=== PATIENT | male | born 1980 | race Two or more races ===

== ENCOUNTER 2016-09-19 03:54 | Emergency (ER) | payer MEDICARE, MEDICAID ==
[~2016-09-19] VITALS: Ht 172.7 cm; Wt 65.8 kg
[~2016-09-19 03:54] MED LIST: ADDERALL 20 MG20 MG ORAL; ATIVAN1 MG ORAL; CHANTIX0.5 MG PO; CLINDAMYCIN HC150 MG ORAL; CYMBALTA30 MG ORAL; FIORICET-COD 31 EACH PO; IBUPROFEN600 MG ORAL; KEPPRA500 M4 ORAL; MULTI VITAMIN1 EACH PO; NKM; NORCO 5-325 TA1 EACH ORAL; ROBAXIN-750750 MG PO; TRAMADOL HCL50 MG ORAL; [UNRECOGNIZED DRUG - OTHER]; ativan; fioricet; plaquenil
[2016-09-19 04:23] VITALS: BP 110/67
--- NOTE | 2016-09-19 04:34 | Emergency Room Report ---
History of Present Illness General Chief Complaint: Behavioral Complaint Source: Patient Present Illness HPI This is a 35-year-old male with a history of seizure and also psychiatric history. He alleged that he left [facility] 3 days ago. He walked all the way here from there. On the way, he stopped by [facility]. Did this because his lupus act up. He was prescribe medication including Dilaudid. He has not filled it. He walked all the way from there to here. He claimed that he walked in the rain for the last 3 days. He said he felt depressed because his roommate is driving him crazy. No specific suicidal plans. Denies delusions. Allergies: Coded Allergies: NAPROXEN (Verified Allergy, Intermediate, fever, 02/21/13) MELOXICAM (Verified Allergy, Unknown, rash, 08/30/16) SULFA (SULFONAMIDE ANTIBIOTICS) (Verified Allergy, Unknown, 09/19/16) Patient History Past Medical History: see triage record, old chart reviewed, seizures, psych hx Past Surgical History: other Pertinent Family History: none Social History: Reports: smoking, Denies: drug use Immunizations: other Reviewed Nursing Documentation: PMH: Agreed, PSxH: Agreed Nursing Documentation-PMH Hx Cancer: No Hx Gastrointestinal Problems: No History Of Psychiatric Problem: Yes - Depression Hx Seizures: Yes Review of Systems Eye: Denies: blurred vision, eye pain ENT: Denies: ear pain, nose congestion, throat swelling Respiratory: Denies: cough, shortness of breath Cardiovascular: Denies: chest pain, palpitations Gastrointestinal: Denies: abdominal pain, diarrhea, nausea, vomiting Musculoskeletal: Denies: back pain, joint pain Skin: Denies: rash Neurological: Denies: headache, numbness Endocrine: Denies: increased thirst, increased urine Hematologic/Lymphatic: Denies: easy bruising All Other Systems: negative except mentioned in HPI Physical Exam Vital Signs Date Time Temp Pulse Resp B/P Pulse Ox O2 Delivery O2 Flow Rate FiO2 09/19/16 04:06 97.9 93 16 107/60 97 Room Air vitals normal Sp02 EP Interpretation: reviewed, normal General Appearance: well appearing, no apparent distress, alert Head: normocephalic, atraumatic Eyes: bilateral eye EOMI, bilateral eye PERRL ENT: hearing grossly normal, normal pharynx Neck: full range of motion, supple, no meningismus Respiratory: chest non-tender, lungs clear, normal breath sounds Cardiovascular #1: regular rate, rhythm, no murmur Gastrointestinal: normal bowel sounds, non tender, no mass, no organomegaly, no bruit, non-distended Musculoskeletal: back normal, gait/station normal, normal range of motion Psychiatric: mood/affect normal Skin: warm/dry Medical Decision Making Diagnostic Impression: Primary Impression: Depressed Qualified Codes: F32.9 - Major depressive disorder, single episode, unspecified Additional Impression: Acute stress reaction ER Course Patient complaining of depression. No particular suicidal thoughts or homicidal thought. I doubt that he walked away from alcohol and brought to here in the rain. He's not wet. I suspected drugs or psychiatric component. He does not meet criteria for 5150. We'll discharge home. He had prescriptions from [facility] already. Labs are unremarkable. I see no need for repeat lab tests. Last Vital Signs Date Time Temp Pulse Resp B/P Pulse Ox O2 Delivery O2 Flow Rate FiO2 09/19/16 04:06 97.9 93 16 107/60 97 Room Air Status: unchanged Disposition: HOME, SELF-CARE Condition: Stable Referrals: MAXIMILIAN HERRERA M.D. (PCP) Additional Instructions: Take your medication. Followup with your Dr. in 2 to 3 days. Return if symptom worsen. JUSTIN MESSINA M.D. Sep 19, 2016 04:34
[2016-09-19 04:51] VITALS: BP 110/67
== END 2016-09-19 04:51 | disposition home or self-care (01) ==
LOC: EMR 04:24
DX: F32.9 Major depressive disorder, single episode, unspecified (principal); F43.0 Acute stress reaction; F17.200 Nicotine dependence, unspecified, uncomplicated; Z88.6 Allergy status to analgesic agent; Z88.2 Allergy status to sulfonamides; Z88.8 Allergy status to other drugs, medicaments and biological substances
CPT/HCPCS: 80300; 99282